=== PATIENT | male | born 1990 | race Caucasian/White ===

== ENCOUNTER 2023-03-28 14:00 | Emergency (ER) | payer MEDICAID, SELFPAY ==
--- NOTE | ~2023-03-28 | US_ITS ---
EXAMINATION: US venous doppler [facility] DATE: 03/28/2023 14:55 INDICATION: Lower limb swelling TECHNIQUE: Grayscale ultrasound images without and with compression and Doppler ultrasound images of the bilateral lower extremity veins were obtained. COMPARISON: None. FINDINGS: The visualized portions of right common femoral vein, profunda (deep) femoral vein, proximal femoral vein, popliteal vein, gastrocnemius vein and greater saphenous vein outflow are patent. The mid to di stal femoral vein and the posterior tibial and peroneal veins are unable to be assessed due to poor v isualization related to body habitus. The visualized portions of left common femoral vein, profunda femoral vein, proximal femoral vein, po pliteal vein, gastrocnemius vein and greater saphenous vein outflow are patent. The mid to distal fem oral vein and the posterior tibial and peroneal veins are unable to be assessed due to poor visualiza tion related to body habitus IMPRESSION: 1. Limited bilateral lower extremity Doppler study demonstrating no visible deep venous thrombosis i n either lower limb. Of note the bilateral mid to distal femoral veins, posterior tibial veins and pe roneal veins were unable to be visualized due to patient body habitus. Reviewed, dictated and finalized at location A. IMPRESSION: 1. Limited bilateral lower extremity Doppler study demonstrating no visible de ep venous thrombosis in either lower limb. Of note the bilateral mid to distal femoral veins, posterior tibial veins and peroneal veins were unable to be visu alized due to patient body habitus.
--- NOTE | ~2023-03-28 | CT_ITS ---
EXAMINATION: CTA chest PE abdomen pel DATE: 03/28/2023 15:30 INDICATION: Shortness of breath. Jaundice. TECHNIQUE: Computed tomography angiography (CTA) of the chest was performed with 100 mL Omnipaque-350 intravenous contrast timed to evaluate the pulmonary arteries. Coronal maximum intensity projection 3D-reconstructions were created by the technologist. Computed tomography (CT) of the abdomen and pelv is was performed with intravenous contrast. Automated exposure control and iterative reconstruction t echnique were employed. The dose-length product was 2608.64 mGy-cm. COMPARISON: None. FINDINGS: CTA chest: There are small pleural effusions, right worse than left. There is minimal atelectasis kelsey aterally. There is a multinodular goiter. Cardiomegaly is noted. No pericardial effusion. There is mi ld mediastinal lymphadenopathy. For example, a right paratracheal node measures 1.7 x 1.3 cm. There i s no pulmonary embolus. CT abdomen and pelvis: The liver and spine are normal. There are gallstones in the gallbladder, which is normal in size. The pancreas, adrenal glands, and kidneys are normal. There are no dilated loops of bowel. The prostate is mildly enlarged. There are no dilated loops of bowel. The appendix is not v isualized. There is a small volume of ascites. There is mild bilateral external iliac lymphadenopathy . For example, a right external iliac node measures 19 x 14 mm. There is mild thoracic and lumbar spo ndylosis. There is mild chronic anterior wedging of multiple thoracic vertebral bodies. IMPRESSION: 1. Small pleural effusions, right worse than left. 2. Small volume of ascites. 3. Mild mediastinal and bilateral external iliac lymphadenopathy. 4. No pulmonary embolus. 5. Multinodular goiter. Consider thyroid ultrasound for risk stratification. Reviewed, dictated and finalized at location E.
--- NOTE | ~2023-03-28 | XR_ITS ---
XR chest 2V DATE: 03/28/2023 14:36 INDICATION: Shortness of breath, bilateral leg edema TECHNIQUE: 2 views COMPARISON: None FINDINGS: Enlarged cardiac silhouette which may be due to cardiomegaly/cardiomyopathy, less likely pe ricardial effusion. Mild prominence of the fissures suggesting subpleural edema. There is pulmonary vascular redistributi on suggesting pulmonary venous hypertension. Slight pleural effusions are suggested. No pulmonary consolidation or pneumothorax. IMPRESSION: Enlarged cardiac silhouette likely due to cardiomegaly, less likely pericardial effusion Congestive changes Reviewed, dictated and finalized at location L.
[2023-03-28 14:10] VITALS: BP 179/123; PULSE 108; RESP 20; TEMP 36.3; O2SAT 95
[2023-03-28 14:22] LABS: Basophils Absolute Auto 0.03 K/mm3 (0.00-0.10); Basophils Percent Auto 0.4 % (0.0-1.0); Eosinophils Percent Auto 1.5 % (1.0-6.0); Hematocrit 40.9 % (40.0-54.0); Hemoglobin 13.1 g/dL (14.0-18.0); Immature Granulocyte Absolute 0.02 K/mm3 (0.00-0.00); Immature Granulocyte Percent A 0.3 % (0.0-0.0); Lymphocytes Absolute Auto 1.52 K/mm3 (1.10-4.50); Lymphocytes Percent Auto 22.3 % (18.0-42.0); Mean Corpuscular Hemoglobin 27.6 pg (27.0-31.0); Mean Corpuscular Volume 86.1 fL (78.0-102.0); Mean Platelet Volume 9.7 fl (8.7-11.0); Monocytes Percent Auto 7.3 % (2.0-11.0); Neutrophils Absolute Auto 4.7 K/mm3 (1.7-7.2); Neutrophils Percent Auto 68.2 % (50.0-70.0); Platelet Count Result 243 K/mm3 (150-420); Red Blood Count 4.75 M/mm3 (4.70-6.10); Red Cell Distribution Width 15.2 % (11.6-14.4); White Blood Count 6.8 K/mm3 (4.8-10.8)
--- NOTE | 2023-03-28 14:27 | ED.EXTPRO ---
HPI - Extremity Problem General Chief complaint: Extremity Problem,Nontraumatic Stated complaint: leg swelling Time Seen by Provider: 03/28/23 14:13 Source: patient and family Mode of arrival: ambulatory Limitations: no limitations History of Present Illness HPI Narrative: patient is a 32-year-old male with bilateral lower extremity edema getting worse over the past 3-4 months. Patient has been waiting to deal with this problem and decided today that he would make the move and come to the emergency room for evaluation. No new changes in the last 24-48 hours. The swelling has increased over the last month however. He has associated shortness of breath with exertion. patient has not seen any specialist or primary doctor for this problem. 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 MD Complaint: extremity swelling Onset (ago): month(s) (4) Pain Consistency: constant ( Progressively getting worse) Location: left, right and lower extremity Severity scale (1-10): 9 ( swelling) Quality: aching Radiation: none Relieving factors: nothing Exacerbating factors: nothing Associated symptoms: shortness of breath Related Data Allergies Allergy/AdvReac Type Severity Reaction Status Date / Time No Known Allergies Allergy Verified 03/28/23 14:24 Review of Systems Review of Systems: All systems reviewed & are unremarkable except as noted in HPI and below Constitutional: Constitutional: Reports no additional constitutional complaints Eyes: Eyes: Reports no additional eye complaints ENT: Reports system reviewed and no additional complaints, except as documented Cardiovascular: Cardiovascular: Reports no additional cardiovascular complaints Respiratory: Respiratory: Reports no additional respiratory complaints Gastrointestinal: Gastrointestinal: Reports no additional gastrointestinal complaints Genitourinary: Genitourinary: Reports no additional male genitourinary complaints Musculoskeletal: Musculoskeletal: Reports no additional musculoskeletal complaints Integumentary/Breasts: Skin/Breast: Reports system reviewed and no additional complaints, except as docu Neurologic: Reports system reviewed and no additional complaints, except as documented Psychiatric: Psychiatric: Reports no additional psychiatric complaints Endocrine: Endocrine: Reports no additional endocrine complaints Hematologic/Lymphatic: Hematologic/Lymphatic: Reports no additional hematologic/lymphatic complaints Allergic/Immunologic: Allergic/Immunologic: Reports no additional allergic/immunologic complaints Exam Const: General: healthy appearing ( with some paleness appearance of the face and possibly slight jaundice) Nutritional Appearance: well nourished and obese Orientation/consciousness: patient oriented x3 Limitations: no limitations HENMT: Head: normal to inspection Ears: external ears normal Face/Nose/Sinus: Normal external nose present Eyes: Conjunctivae: conjunctivae normal Pupils: Equal, round and reactive pupils present EOM: EOMs intact bilaterally Neck: Neck: normal visual inspection Chest: Chest palpation & inspection: normal inspection of the chest Resp: Effort & Inspection: normal respiratory effort Auscultation: clear to auscultation bilaterally Cardio: Rate: regular rate Rhythm: regular rhythm Heart sounds: no murmurs GI: Inspection: non-distended GI Palp: Yes Soft to palpation and No Tenderness to palpation present (GI) Auscultation: normal bowel sounds : General: Yes bladder normal to palpation Back/Spine/Pelvis: Back: no CVA tenderness Skin: General skin exam: jaundice and pallor Rashes: no rashes Wounds: no wounds Neuro: General: patient oriented x3 Cranial nerves: Yes Nystagmus not present Speech: normal speech Extrem: Other: bilateral lower extremity 4+ pitting edema (extends from the thighs to the feet) Psych: Mental Status: mental status grossly normal Affect: normal
[2023-03-28 14:40] LABS: INR 1.1; Partial Thromboplastin Time 28.5 SEC (23.90-30.70); Prothrombin Time 11.9 Seconds (9.50-12.10)
[2023-03-28 14:42] LABS: Lactic Acid Reflex 1.9 mmol/L (0.4-2.0)
[2023-03-28 14:43] LABS: D Dimer 1.35 mg/L (0.19-0.50)
[2023-03-28 14:45] LABS: Alanine Aminotransferase 10 U/L (16-63); Albumin Level 3.3 g/dL (3.4-5.0); Alkaline Phosphatase 141 U/L (46-116); Anion Gap 11 mmol/L (8-16); Aspartate Amino Transferase 16 U/L (15-37); Bilirubin,Total 2.9 mg/dL (0.00-1.00); Blood Urea Nitrogen 17 mg/dL (7-18); Calcium 9.1 mg/dL (8.5-10.1); Carbon Dioxide 27 mmol/L (21-32); Chloride 106 mmol/L (98-108); Estimated CRCL calculation 117 ml/min; Estimated Glomerular Filt Rate 58; Glucose 96 mg/dL (70-99); Osmolality Calculated 299 mOsm/kg (285-295); Potassium 3.9 mmol/L (3.5-5.1); Sodium 144 mmol/L (136-145); Thyroid Stimulating Hormone 2.03 uIU/mL (0.36-3.74); Total Protein 6.7 g/dL (6.4-8.2)
[2023-03-28 15:06] VITALS: BP 167/106; PULSE 95; RESP 24; O2SAT 96
[2023-03-28 16:08] VITALS: BP 158/109; PULSE 106; RESP 20; O2SAT 99
[2023-03-28 16:27] LABS: Appearance Urine Clear (Clear); Bilirubin Urine Negative (Negative); Blood Urine 2+ (Negative); Color Urine Yellow (Yellow); Glucose Urine UA Negative (Negative); Ketones Urine Negative (Negative); Leukocyte Esterase Ur Negative LEU/UL (Negative); Nitrate Urine Negative (Negative); Protein Urine 2+ (Negative)
[2023-03-28 16:33] LABS: Add Urine Microscopic? YES; Bacteria Urine Trace /hpf; Squamous Epithelial Cell Urine Rare /hpf (Few); WBC Urine 0-3 /hpf (0-3)
[2023-03-28] MEDS: hydrALAZINE HCL 25 MG TABLET PO (17:34)
[2023-03-28 17:39] VITALS: BP 182/122; PULSE 109; RESP 20; TEMP 36.5; O2SAT 98
== END 2023-03-28 17:46 | disposition home or self-care (01) ==
PROVIDERS: Emergency Provider Emergency Medicine
DX: N04.9 Nephrotic syndrome with unspecified morphologic changes (principal); R60.9 Edema, unspecified; R59.1 Generalized enlarged lymph nodes; I10 Essential (primary) hypertension; Z85.6 Personal history of leukemia; Z92.21 Personal history of antineoplastic chemotherapy; Z92.3 Personal history of irradiation
CPT/HCPCS: 36415; 71046; 71275; 74177; 80053; 81001; 83605; 84443; 85025; 85380; 85610; 85730; 93970; 99284; A9270; Q9967

== ENCOUNTER 2023-04-20 08:48 | Outpatient (CLI) | payer MEDICAID, SELFPAY ==
--- NOTE | ~2023-04-20 | US_ITS ---
EXAMINATION: US thyroid DATE: 04/20/2023 09:19 INDICATION: Multinodular goiter. TECHNIQUE: Multiple ultrasound images of the thyroid were obtained. COMPARISON: Chest CT 03/28/2023 FINDINGS: The right thyroid lobe measures 7.7 x 4.1 cm. The left thyroid lobe measures 11.3 x 7.4 x 5.0 cm. Th e thyroid is diffusely replaced by nodules. In the right thyroid lobe, there is a 2.5 cm solid, hypoe choic, wider than tall nodule with irregular margin and punctate echogenic foci (TI-RADS TR5). In the right thyroid lobe, there is a 5.2 cm cystic hypoechoic nodule with mobile echoes and smooth margin without echogenic foci (TR2). In the left thyroid lobe, there is a 7.4 cm solid, hypoechoic, wider th an tall nodule with smooth margin and macrocalcifications (TR4). IMPRESSION: 1. Multinodular goiter. Consider ultrasound-guided fine-needle aspiration of 2 nodules. Reviewed, dictated and finalized at location E.
== END 2023-04-20 08:49 | disposition home or self-care (01) ==
PROVIDERS: PCP Nurse Practitioner; Visit Provider Nurse Practitioner
DX: E04.2 Nontoxic multinodular goiter (principal)
CPT/HCPCS: 76536

== ENCOUNTER 2023-05-15 10:35 | Outpatient (CLI) | payer OTHER, SELFPAY ==
--- NOTE | 2023-05-15 10:42 | ECHO_ITS ---
Patient Info Name: Erlin Hernandez Age: 32 years : 1990 Gender: Male Ht: 63 in Wt: 360 lbs BSA: 2.81 m2 HR: 65 bpm BP: 143 / 95 mmHg Heart Rhythm: Sinus Rhythm Technical Quality: Good Exam Date: 05/15/2023 1:35 PM Exam Location: Echo Lab Patient Status: Outpatient Admit Date: 05/15/2023 Staff Ordering Physician: Rhett Deng MD Drug Regulatory Affairs Specialist: Sari Walker RDCS Attending Provider: Rhett Deng MD Referring Physician: Sowmya VELOZ; Exam Type: CA echo doppler color flow Study Info Indications - LEUKEMIA, LEG SWELLING Complete two-dimensional, color flow and Doppler transthoracic echocardiogram is performed. Summary 1. Complete two-dimensional, color flow and Doppler transthoracic echocardiogram is performed. 2. Left ventricular chamber dimension is severely enlarged. 3. Left ventricular systolic function is severely globally reduced, estimated at 25-30%. 4. There is mild concentric increased left ventricular wall thickness. 5. The left ventricular diastolic function is abnormal. 6. E/e' 18 is elevated. 7. Left atrial chamber dimension is moderately enlarged. 8. Right atrial chamber dimension is moderately enlarged. 9. There is mild mitral valve regurgitation. 10. There is mild tricuspid valve regurgitation. 11. No pulmonary hypertension, estimated pulmonary arterial systolic pressure is 37 mmHg. Left Ventricle E/e' 18 is elevated. Left ventricular chamber dimension is severely enlarged. Left ventricular systolic function is severely globally reduced, estimated at 25-30%. There is mild concentric increased left ventricular wall thickness. The left ventricular diastolic function is abnormal. Right Ventricle Right ventricular chamber dimension is normal. Right ventricular systolic function is normal and with normal TAPSE 2.0 cm. Left Atria Left atrial chamber dimension is moderately enlarged. Right Atria Right atrial chamber dimension is moderately enlarged. Aortic Valve The aortic valve is trileaflet. There is no aortic valve stenosis. There is no aortic valve regurgitation. Pulmonic Valve There is no pulmonic regurgitation. Mitral Valve There is no mitral valve stenosis. There is mild mitral valve regurgitation. Tricuspid Valve There is mild tricuspid valve regurgitation. No pulmonary hypertension, estimated pulmonary arterial systolic pressure is 37 mmHg. Pericardium/Pleural There is no pericardial effusion. Inferior Vena Cava Normal inferior vena cava with >50% collapse upon inspiration consistent with normal right atrial pressure, 5 mmHg. Aorta The aortic root size at the sinus of Valsalva is normal. Left Ventricular Outflow Tract Name Value Normal LVOT 2D LVOT Diameter 2.2 cm LVOT Doppler LVOT Peak Velocity 88 cm/s LVOT Peak Gradient 3 mmHg LVOT Mean Gradient 2 mmHg LVOT VTI 25 cm LVOT VTI/AV VTI Ratio 0.9 LVOT Stroke Volume 97 ml Pulmonic Valve Name Value
== END 2023-05-15 10:36 | disposition home or self-care (01) ==
LOC: CHSIMG 10:37
PROVIDERS: PCP Nurse Practitioner; Visit Provider Internal Medicine
DX: R60.0 Localized edema (principal); Z85.6 Personal history of leukemia; I08.1 Rheumatic disorders of both mitral and tricuspid valves
CPT/HCPCS: 93306

== ENCOUNTER 2023-05-29 07:09 | Outpatient (CLI) | payer OTHER, SELFPAY ==
--- NOTE | ~2023-05-29 | US_ITS ---
US renal BI 05/29/2023 08:27 Procedure: Realtime transabdominal ultrasound of the kidneys and bladder. Indication: Hypertension Comparison: No prior studies for comparison. Findings: Renal echotexture is normal bilaterally without hydronephrosis, contour deforming mass or r enal calculus. The right kidney measures 10.7 cm and left kidney measures 12.7 cm. Bladder wall is m ildly thickened measuring 8 mm. Impression: 1: Mild bladder wall thickening. Consider cystitis in the appropriate clinical setting. Reviewed, dictated and finalized at location B. ER DEVELOPMENT COORDINATOR Impression: 1: Mild bladder wall thickening. Consider cystitis in the appropriate clinical setting.
--- NOTE | ~2023-05-29 | CT_ITS ---
Clinical Indication: Swelling, lymphoblastic leukemia CT Scan of the Neck, Chest, Abdomen, and Pelvis with Contrast: Technique: Contiguous sections were acquired throughout the neck, chest, abdomen, and pelvis after in travenous administration of 100 cc of Omnipaque 350. Dose reduction technique was used on this scan by utilizing automated exposure control and iterative reconstruction technique. The dose-length produ ct (DLP) was 2355.55 mGy-cm. COMPARISON: 03/28/2023 Findings: No definite lymphadenopathy seen in the neck. There is prominence of bilateral palatine ton sils, suggestive of airway narrowing at the lower oropharynx. No peritonsillar abscess identified. Pa rapharyngeal fat is preserved. Parotid and submandibular glands are unremarkable. There is a markedly enlarged thyroid gland, with substernal extension. Suggestion of extensive nodula rity. There is a 4.8 cm cystic/hypodense area in the right thyroid lobe. There is minimal narrowing o f the trachea in the lateral dimension at the level of the thyroid gland, trachea measuring 10 mm at this level (axial image 73). There is no evidence of any significant mediastinal, hilar or axillary lymphadenopathy. Small amount of pericardial fluid. The mediastinal soft tissues and vascular structures otherwise appear normal. There is no evidence of pleural or pericardial effusion. The lungs are clear. No pulmonary nodules or infiltrates are noted. The liver, spleen, pancreas, adrenals and kidneys are within normal limits. Numerous gallstones are p resent. No evidence of aortic aneurysm. No lymphadenopathy. No bowel obstruction or bowel wall thickening. There is no evidence to suggest acute appendicitis. Urinary bladder is unremarkable. No pelvic mass evident. No ascites. Impression: Prominent bilateral palatine tonsils with possible element of airway narrowing at the lower oropharyn x. No peritonsillar abscess or other inflammatory change clearly evident. Correlate clinically, espec ially for upper respiratory symptoms/dyspnea. Consider direct inspection as indicated. Markedly enlarged thyroid gland/goiter, as detailed above, similar in appearance to prior exam. Consi clemencia additional thyroid workup/evaluation as indicated. Cholelithiasis. A small amount of pericardial fluid. Reviewed, dictated and finalized at location M. OR PODIATRIC MEDICINE Impression: Prominent bilateral palatine tonsils with possible element of airway narrowing at the lower oropharynx. No peritonsillar abscess or other inflammatory change clearly evident. Correlate clinically, especially for upper respiratory symptom s/dyspnea. Consider direct inspection as indicated. Markedly enlarged thyroid gland/goiter, as detailed above, similar in appearanc e to prior exam. Consider additional thyroid workup/evaluation as indicated. Cholelithiasis. A small amount of pericardial fluid.
[2023-05-29 07:42] LABS: Creatinine Urine 78.38 mg/dL (40-278); Total Protein Urine Random 24.7 mg/dL (0.0-11.9); Ur Ttl Prot Creatinine Ratio 0.32 mg/mg (0-0.20)
[2023-05-29 07:43] LABS: Estimated Glomerular Filt Rate > 60
[2023-05-29 07:45] LABS: Anion Gap 6 mmol/L (8-16); Blood Urea Nitrogen 18 mg/dL (7-18); Carbon Dioxide 32 mmol/L (21-32); Chloride 99 mmol/L (98-108); Glucose 102 mg/dL (70-99); Osmolality Calculated 285 mOsm/kg (285-295); Phosphorus 4.3 mg/dL (2.6-4.7); Sodium 137 mmol/L (136-145)
[2023-06-01 10:44] LABS: Complement C3 141 mg/dL (82-185)
[2023-06-01 11:11] LABS: Anti Glomerular Basement Memb <1.0 AI (<1.0)
[2023-06-01 16:18] LABS: Albumin 4.1 g/dL (3.8-4.8); Alpha 1 Globulin 0.3 g/dL (0.2-0.3); Alpha 2 Globulin 0.7 g/dL (0.5-0.9); Beta 1 Globulin 0.5 g/dL (0.4-0.6); Gamma Globulin 1.3 g/dL (0.8-1.7); Protein, Total 7.4 g/dL (6.1-8.1)
[2023-06-03 01:34] LABS: Creatinine, Random Urine 80 mg/dL (20-320); Total Protein/Creatinine Ratio 238 mg/g creat (25-148)
[2023-06-03 21:25] LABS: ANCA Screen Negative (Negative)
== END 2023-05-29 07:10 | disposition home or self-care (01) ==
LOC: CHSIMG 07:11
PROVIDERS: PCP Nurse Practitioner; Visit Provider Internal Medicine Nephrology
DX: I10 Essential (primary) hypertension (principal); R60.0 Localized edema; Z85.6 Personal history of leukemia; E04.9 Nontoxic goiter, unspecified; K80.20 Calculus of gallbladder without cholecystitis without obstruction; R93.41 Abnormal radiologic findings on diagnostic imaging of renal pelvis, ureter, or bladder
CPT/HCPCS: 36415; 70491; 71260; 74177; 76775; 80069; 82570; 83520; 84155; 84156; 84165; 84166; 86036; 86038; 86160; 86225; Q9967

== ENCOUNTER 2023-08-09 20:03 | Outpatient (CLI) | payer OTHER, SELFPAY ==
--- NOTE | 2023-09-04 10:32 | WPDSLEEPSTUD ---
Sleep Study Date of Study: 08/09/23 Ordering Provider: Parrish Hutson APRN Interpreting Physician: Josephine Mckeon MD Sleep Study Type: Split Polysomnogram Height: 1.91 m Weight: 148.778 kg Body Mass Index: 41.0 Neck Circumference (inches): 18.75 [place]: 3 Reason for Sleep Study Loud snoring Sleep History Erlin Hernandez is a 32-year-old man with history of hypertension, cardiomyopathy, stage 3 chronic kidney disease with a history of leukemia. He has a goiter and is being evaluated for possible thyroidectomy. His mother reports that he has had apneic episodes. He rarely awakens from sleep feeling short of breath. He never wakes at night with heartburn, belching or coughing.??He frequently snores, and frequently snores loudly enough that others complain. He frequently has trouble sleeping when he has a cold. He never wakes up gasping for breath during the night. He occasionally has breathing problems at night. He rarely sweats excessively at night. He rarely notices his heart pounding or beating irregularly during the night. He occasionally falls asleep during the day. He rarely falls asleep involuntarily, however never falls asleep while driving. He never experiences loss of muscle tone with strong emotion. He never has daytime difficulty at work due to excessive sleepiness. He rarely feels paralyzed on waking or falling asleep. He never experiences vivid dreams upon waking or falling asleep. He never feels afraid of going to sleep. He occasionally has nightmares. He rarely recalls his dreams. He occasionally has thoughts racing through his mind. He occasionally feels sad or depressed. He occasionally feels anxiety. He never notices parts of his body jerk. He never kicks during the night. He rarely feels crawling or aching feelings in his legs. He occasionally feels leg pain at night. He never has morning jaw pain, rarely grinds his teeth at night. He rarely feels bothered by pain during the day, rarely awakened by pain during the night. He rarely wakes up feeling stiff in the morning, and he rarely wakes feeling sore or achy. He rarely awakens with pain in his neck, spine, or joints. Normal bedtime is 11:00 p.m., falling asleep within 10-15 minutes, waking once or twice during the night for 15 minutes, long enough to get a drink of water in go to the bathroom. His normal wake time is 8:00 a.m.. He keeps the same schedule on weekends. He estimates getting between 6 and 7 hours of sleep at night. He takes naps in the day, and he may feel refreshed after 10-15 minute nap. Habits:??Tobacco: Never smoker Caffeine: 3-4 cans Mountain Dew daily Alcohol: 2-3 servings per month Recreational substances: none [facility] Past Medical History Medical History Ascites Bilateral lower extremity edema Elevated LFTs Hypertension Surgical History Surgical History History of removal of Port-a-Cath Family History Family History Father Glioblastoma Sibling Thyroid cancer Mother Thyroid nodule Social History Social History Smoking status: Never smoker Alcohol intake: current Substance use: never Do You Feel Safe in your Home?: Yes Lack of Transportation: No Lack of Food: Never True Current Housing: I Have Housing Concerned About Future Housing: No Difficulty Paying Gas/Electric Bills: Decline to Answer Difficulty Paying for Meds: Decline to Answer Currently Unemployed: Decline to Answer Education: High School Diploma/GED Difficulty w/ Childcare or Family Care: No Living arrangements: with family Gender identity (if verbalized by the patient): Male Medications Home Medications Medication Instructions Recorded Confirmed Type furosemide 20 mg tablet (Lasix) 20
[2023-09-04 10:47] VITALS: BMI 41.0
== END 2023-08-10 06:33 | disposition home or self-care (01) ==
LOC: CHSCSM 20:05
PROVIDERS: PCP Nurse Practitioner Family; Visit Provider Nurse Practitioner Family
DX: G47.33 Obstructive sleep apnea (adult) (pediatric) (principal); R06.83 Snoring; Z68.41 Body mass index [BMI] 40.0-44.9, adult
CPT/HCPCS: 95811

== ENCOUNTER 2023-08-21 08:04 | Outpatient (CLI) | payer OTHER, SELFPAY ==
--- NOTE | 2023-08-21 08:08 | ECHO_ITS ---
Patient Info Name: Erlin Hernandez Age: 32 years : 1990 Gender: Male Ht: 63 in Wt: 328 lbs BSA: 2.67 m2 HR: 78 bpm BP: 151 / 89 mmHg Heart Rhythm: Sinus Rhythm Technical Quality: Good Exam Date: 08/21/2023 9:36 AM Exam Location: Echo Lab Patient Status: Outpatient Admit Date: 08/21/2023 Staff Ordering Physician: Giovanni Clay DO Adult Health Clinical Nurse Specialist: Sari Walker RDCS Attending Provider: Amol Baltazar DO Referring Physician: Obed VÁSQUEZ; Exam Type: CA echo doppler color flow Study Info Indications - cardiomyopathy, unsp Complete two-dimensional, color flow and Doppler transthoracic echocardiogram is performed. Summary 1. Complete two-dimensional, color flow and Doppler transthoracic echocardiogram is performed. 2. Left ventricular chamber dimension is normal. 3. Left ventricular systolic function is normal, estimated at 60-65%. 4. There is mild concentric increased left ventricular wall thickness. 5. The left ventricular diastolic function is grade I diastolic dysfunction. 6. E/e' 23 is elevated. 7. Left atrial chamber dimension is mildly enlarged. 8. There is trace tricuspid valve regurgitation. 9. No pulmonary hypertension, estimated pulmonary arterial systolic pressure is 14 mmHg. Left Ventricle E/e' 23 is elevated. Left ventricular chamber dimension is normal. Left ventricular systolic function is normal, estimated at 60-65%. There is mild concentric increased left ventricular wall thickness. The left ventricular diastolic function is grade I diastolic dysfunction. Right Ventricle Right ventricular systolic function is normal and with normal TAPSE 3.9 cm. Right ventricular chamber dimension is normal. Left Atria Left atrial chamber dimension is mildly enlarged. Right Atria Right atrial chamber dimension is normal. Aortic Valve The aortic valve is trileaflet. There is no aortic valve stenosis. There is no aortic valve regurgitation. Pulmonic Valve There is no pulmonic regurgitation. Mitral Valve There is no mitral valve stenosis. There is no mitral valve regurgitation. Tricuspid Valve There is trace tricuspid valve regurgitation. No pulmonary hypertension, estimated pulmonary arterial systolic pressure is 14 mmHg. Pericardium/Pleural There is no pericardial effusion. Inferior Vena Cava Normal inferior vena cava with >50% collapse upon inspiration consistent with normal right atrial pressure, 5 mmHg. Aorta The aortic root size at the sinus of Valsalva is normal. Left Ventricular Outflow Tract Name Value Normal LVOT 2D LVOT Diameter 2.1 cm LVOT Doppler LVOT Peak Velocity 153 cm/s LVOT Peak Gradient 9 mmHg LVOT Mean Gradient 5 mmHg LVOT VTI 35 cm LVOT VTI/AV VTI Ratio 0.9 LVOT Stroke Volume 126 ml Pulmonic Valve Name Value Normal RVOT Doppler
[2023-08-21 10:42] LABS: Free T4 Free Thyroxine 0.96 ng/dL (0.76-1.46); Thyroid Stimulating Hormone 0.68 uIU/mL (0.36-3.74)
[2023-08-21 10:57] LABS: Cholesterol 149 mg/dL (0-200); HDL Direct 43 mg/dL (40-60); LDL Cholesterol Calculated 92 mg/dL (<130); Triglycerides 69 mg/dL (0-150)
[2023-08-24 01:50] LABS: Thyroid Peroxidase Antibodies <1 IU/mL (<9)
== END 2023-08-21 08:05 | disposition home or self-care (01) ==
LOC: CHSIMG 08:04
PROVIDERS: Internal Medicine; Internal Medicine Cardiovascular Disease; PCP Family Medicine; Visit Provider Family Medicine
DX: E04.2 Nontoxic multinodular goiter (principal); I42.9 Cardiomyopathy, unspecified
CPT/HCPCS: 36415; 80061; 84439; 84443; 86376; 93306

== ENCOUNTER 2023-11-06 07:49 | Outpatient (CLI) | payer OTHER, SELFPAY ==
[2023-11-06 09:10] LABS: Alanine Aminotransferase 23 U/L (16-63); Albumin Level 3.7 g/dL (3.4-5.0); Alkaline Phosphatase 88 U/L (46-116); Anion Gap 4 mmol/L (4-12); Aspartate Amino Transferase 19 U/L (15-37); Bilirubin,Total 0.7 mg/dL (0.00-1.00); Blood Urea Nitrogen 25 mg/dL (7-18); Carbon Dioxide 35 mmol/L (21-32); Chloride 97 mmol/L (98-108); Estimated Glomerular Filt Rate 49; Free T4 Free Thyroxine 0.86 ng/dL (0.76-1.46); Glucose 93 mg/dL (70-99); Osmolality Calculated 286 mOsm/kg (285-295); Potassium 4.3 mmol/L (3.5-5.1); Sodium 136 mmol/L (136-145); Thyroid Stimulating Hormone 12.76 uIU/mL (0.36-3.74); Total Protein 7.7 g/dL (6.4-8.2)
[2023-11-09 03:38] LABS: Vitamin D 25 Hydroxy 17 ng/mL (30-100)
[2023-11-09 07:18] LABS: Thyroglobulin 95.3 ng/mL; Thyroglobulin Antibodies <1 IU/mL (< or = 1)
== END 2023-11-06 07:50 | disposition home or self-care (01) ==
LOC: CHSLAB 07:50
PROVIDERS: PCP Nurse Practitioner Family; Visit Provider Internal Medicine
DX: C73 Malignant neoplasm of thyroid gland (principal); E04.2 Nontoxic multinodular goiter
CPT/HCPCS: 36415; 80053; 82306; 82330; 84432; 84439; 84443; 86800

== ENCOUNTER 2023-12-01 07:40 | Outpatient (CLI) | payer OTHER, SELFPAY ==
[2023-12-01 08:12] LABS: Basophils Absolute Auto 0.03 K/mm3 (0.00-0.10); Basophils Percent Auto 0.4 % (0.0-1.0); Eosinophils Absolute Auto 0.12 K/mm3 (0.02-0.50); Eosinophils Percent Auto 1.8 % (1.0-6.0); Hematocrit 35.9 % (40.0-54.0); Hemoglobin 12.5 g/dL (14.0-18.0); Immature Granulocyte Absolute 0.01 K/mm3 (0.00-0.00); Immature Granulocyte Percent A 0.1 % (0.0-0.0); Lymphocytes Absolute Auto 2.43 K/mm3 (1.10-4.50); Lymphocytes Percent Auto 35.7 % (18.0-42.0); Mean Corpuscular HGB Conc 34.8 g/dL (32-36); Mean Corpuscular Hemoglobin 30.9 pg (27.0-31.0); Mean Corpuscular Volume 88.6 fL (78.0-102.0); Mean Platelet Volume 9.2 fl (8.7-11.0); Monocytes Absolute Auto 0.39 K/mm3 (0.10-0.90); Monocytes Percent Auto 5.7 % (2.0-11.0); Neutrophils Absolute Auto 3.83 K/mm3 (1.70-7.20); Neutrophils Percent Auto 56.3 % (50.0-70.0); Platelet Count Result 201 K/mm3 (150-420); Red Blood Count 4.05 M/mm3 (4.70-6.10); Red Cell Distribution Width 11.9 % (11.6-14.4); White Blood Count 6.8 K/mm3 (4.8-10.8)
[2023-12-01 08:37] LABS: Albumin Level 3.5 g/dL (3.4-5.0); Anion Gap 8 mmol/L (4-12); Blood Urea Nitrogen 20 mg/dL (7-18); Calcium 8.5 mg/dL (8.5-10.1); Carbon Dioxide 31 mmol/L (21-32); Chloride 103 mmol/L (98-108); Estimated Glomerular Filt Rate > 60; Glucose 101 mg/dL (70-99); Osmolality Calculated 296 mOsm/kg (285-295); Phosphorus 4.3 mg/dL (2.6-4.7); Potassium 4.8 mmol/L (3.5-5.1); Sodium 142 mmol/L (136-145)
[2023-12-01 08:51] LABS: Free T3 1.67 pg/mL (2.18-3.98); Free T4 Free Thyroxine 0.68 ng/dL (0.76-1.46)
[2023-12-04 11:04] LABS: Thyroglobulin 6.3 ng/mL; Thyroglobulin Antibodies <1 IU/mL (< or = 1)
== END 2023-12-01 07:41 | disposition home or self-care (01) ==
LOC: CHSLAB 07:41
PROVIDERS: PCP Nurse Practitioner Family; Visit Provider Internal Medicine Nephrology
DX: C73 Malignant neoplasm of thyroid gland (principal)
CPT/HCPCS: 36415; 80069; 84432; 84439; 84443; 84481; 85025; 86800

== ENCOUNTER 2023-12-12 07:41 | Outpatient (CLI) | payer OTHER, SELFPAY ==
[2023-12-12 08:13] LABS: Basophils Absolute Auto 0.04 K/mm3 (0.00-0.10); Basophils Percent Auto 0.5 % (0.0-1.0); Eosinophils Absolute Auto 0.15 K/mm3 (0.02-0.50); Hematocrit 37.2 % (40.0-54.0); Hemoglobin 13.2 g/dL (14.0-18.0); Immature Granulocyte Absolute 0.02 K/mm3 (0.00-0.00); Immature Granulocyte Percent A 0.3 % (0.0-0.0); Lymphocytes Absolute Auto 2.59 K/mm3 (1.10-4.50); Lymphocytes Percent Auto 34.4 % (18.0-42.0); Mean Corpuscular HGB Conc 35.5 g/dL (32-36); Mean Corpuscular Hemoglobin 31.1 pg (27.0-31.0); Mean Corpuscular Volume 87.7 fL (78.0-102.0); Mean Platelet Volume 9.3 fl (8.7-11.0); Monocytes Absolute Auto 0.41 K/mm3 (0.10-0.90); Monocytes Percent Auto 5.4 % (2.0-11.0); Neutrophils Absolute Auto 4.32 K/mm3 (1.70-7.20); Neutrophils Percent Auto 57.4 % (50.0-70.0); Platelet Count Result 194 K/mm3 (150-420); Red Blood Count 4.24 M/mm3 (4.70-6.10); Red Cell Distribution Width 12.1 % (11.6-14.4); White Blood Count 7.5 K/mm3 (4.8-10.8)
[2023-12-12 08:56] LABS: Alanine Aminotransferase 25 U/L (16-63); Albumin Level 3.5 g/dL (3.4-5.0); Alkaline Phosphatase 92 U/L (46-116); Anion Gap 7 mmol/L (4-12); Aspartate Amino Transferase 17 U/L (15-37); Bilirubin,Total 0.5 mg/dL (0.00-1.00); Blood Urea Nitrogen 19 mg/dL (7-18); Calcium 8.8 mg/dL (8.5-10.1); Carbon Dioxide 30 mmol/L (21-32); Chloride 101 mmol/L (98-108); Estimated Glomerular Filt Rate 58; Glucose 98 mg/dL (70-99); Osmolality Calculated 288 mOsm/kg (285-295); Potassium 4.1 mmol/L (3.5-5.1); Sodium 138 mmol/L (136-145); Total Protein 7.1 g/dL (6.4-8.2)
[2023-12-14 07:14] LABS: Thyroglobulin 3.2 ng/mL; Thyroglobulin Antibodies <1 IU/mL (< or = 1)
== END 2023-12-12 07:42 | disposition home or self-care (01) ==
LOC: CHSLAB 07:44
PROVIDERS: PCP Nurse Practitioner Family
DX: C73 Malignant neoplasm of thyroid gland (principal); R94.4 Abnormal results of kidney function studies
CPT/HCPCS: 36415; 80053; 84432; 84443; 85025; 86800

== ENCOUNTER 2024-02-01 07:51 | Outpatient (CLI) | payer OTHER, SELFPAY ==
[2024-02-01 09:00] LABS: Free T3 2.61 pg/mL (2.18-3.98); Free T4 Free Thyroxine 1.49 ng/dL (0.76-1.46); Thyroid Stimulating Hormone 0.28 uIU/mL (0.36-3.74)
[2024-02-05 09:58] LABS: Thyroglobulin 2.8 ng/mL; Thyroglobulin Antibodies 1 IU/mL (< or = 1)
== END 2024-02-01 07:52 | disposition home or self-care (01) ==
PROVIDERS: PCP Nurse Practitioner Family; Visit Provider Internal Medicine
DX: C73 Malignant neoplasm of thyroid gland (principal); E89.0 Postprocedural hypothyroidism
CPT/HCPCS: 36415; 84432; 84439; 84443; 84481; 86800

== ENCOUNTER 2024-06-18 12:54 | Outpatient (CLI) | payer OTHER, SELFPAY ==
[2024-06-18 13:52] LABS: Free T4 Free Thyroxine 1.56 ng/dL (0.76-1.46); Thyroid Stimulating Hormone 0.02 uIU/mL (0.36-3.74)
[2024-06-20 13:53] LABS: Thyroglobulin 0.1 ng/mL; Thyroglobulin Antibodies <1 IU/mL (< or = 1)
== END 2024-06-18 12:55 | disposition home or self-care (01) ==
PROVIDERS: PCP Internal Medicine; Visit Provider Internal Medicine
DX: C73 Malignant neoplasm of thyroid gland (principal); E89.0 Postprocedural hypothyroidism
CPT/HCPCS: 36415; 84432; 84439; 84443; 86800

== ENCOUNTER 2024-06-28 09:17 | Outpatient (CLI) | payer OTHER, SELFPAY ==
[2024-06-28 09:46] LABS: Creatinine Urine 17.28 mg/dL (40-278)
[2024-06-28 09:57] LABS: Total Protein Urine Random < 7.0 mg/dL (0.0-11.9); Ur Ttl Prot Creatinine Ratio 0.41 mg/mg (0-0.20)
[2024-06-28 10:43] LABS: Albumin Level 3.7 g/dL (3.4-5.0); Anion Gap 10 mmol/L (4-12); Blood Urea Nitrogen 16 mg/dL (7-18); Calcium 8.5 mg/dL (8.5-10.1); Carbon Dioxide 26 mmol/L (21-32); Chloride 103 mmol/L (98-108); Estimated Glomerular Filt Rate > 60; Glucose 110 mg/dL (70-99); Osmolality Calculated 290 mOsm/kg (285-295); Phosphorus 3.4 mg/dL (2.6-4.7); Potassium 4.3 mmol/L (3.5-5.1); Sodium 139 mmol/L (136-145)
== END 2024-06-28 09:18 | disposition home or self-care (01) ==
PROVIDERS: PCP Internal Medicine; Visit Provider Internal Medicine Nephrology
DX: N18.31 Chronic kidney disease, stage 3a (principal)
CPT/HCPCS: 36415; 80069; 82570; 84156

== ENCOUNTER 2024-10-21 07:02 | Outpatient (CLI) | payer OTHER, SELFPAY ==
--- OUTSIDE RECORDS SUMMARY | 2024-10-21 07:06 | XMS_ITS | Clinical Summary ---
Author Organization [facility] [employer] Address [address] [place] [address] Care Team Providers Care Channel Man Name Role Phone Denitachrystal Niru Primary Care Provider [phone] Source Comments [facility] [employer],non-owned Affiliates and Associated Physician Practices is amultiple site organization consisting of ambulatory clinics and hospital sitesin [place], [place] and [place]. This disclosure is being madepursuant to the Care Everywhere program and may not contain all information available regarding this patient. Last updated 18.[facility] [employer] Allergies No known active allergies Medications * Be aware that medications may not be up to date on this document. Alwaysverify current medications with the patient. carvedilol (Coreg) 12.5 MG tablet Take 1 (one) tablet by mouth 2 times daily 4 Active furosemide (Lasix) 20 MG tablet Take 1 (one) tablet by mouth once daily 4 Active hydrALAZINE (Apresoline) 25 MG tablet Take 1 (one) tablet by mouth 2 times daily 4 Active losartan (Cozaar) 100 MG tablet Take 1 (one) tablet by mouth once daily 4 Active spironolactone (Aldactone) 25 MG tablet Take 1 (one) tablet by mouth once daily 4 Active oxyCODONE, immediate release, (Roxicodone) 5 MG tabletIndicatio ns:Nontoxic goiter, unspecified TAKE ONE TABLET BY MOUTH EVERY 4 HOURS NEEDED 12 tablet 4 Active ibuprofen (Motrin) 600 MG tablet TAKE ONE TABLET BY MOUTH EVERY 6 HOURS NEEDED 120 tablet 4 Active acetaminophen (Tylenol) 325 MG tablet TAKE 2 TABLETS BY MOUTH EVERY 6 HOURS NEEDED FOR FEVER OR PAIN. MAXIMUM ALLOWABLE ACETAMINOPHEN AMOUNT: 4 GRAMS (4,000MG) PER 24 HOURS. 240 tablet 4 Active polyethylene glycol 3350 (Miralax) 17 GM/SCOOP powder MIX AND TAKE 1 CAPFUL (17 GM) BY MOUTH ONCE DAILY WHILE ALSO TAKING OXYCODONE 238 g 4 Active levothyroxine (Synthroid) 112 MCG tablet TAKE ONE TABLET BY MOUTH ONCE DAILY 30 tablet 4 Active Active Problems Problem Noted Date Diagnosed Date Thyroid cancer 10/11/2023 Goiter 08/04/2023 Social History Tobacco Use Types Packs/Day Years Used Date Smoking Tobacco: Never Smokeless Tobacco: Never Tobacco Cessation:Counseling Given: Not Answered Alcohol Use Standard Drinks/Week Comments Yes 0 (1 standard drink = 0.6 oz pur e alcohol) rarely Sex and Gender Information Value Date Recorded Sex Assigned at Not on file 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 Gender Identity Not on file Sexual Orientation Not on file Last Filed Vital Signs Vital Sign Reading Time Taken Comments Blood Pressure 143/78 10/11/2023 9:56 AM CDT Pulse 56 10/11/2023 9:56 AM CDT Temperature 36.2 C (97.1 F) 10/06/2023 8:17 AM CDT Respiratory Rate 18 10/06/2023 11:34 AM CDT Oxygen Saturation 97% 10/11/2023 9:56 AM CDT Inhaled Oxygen Concentration - - Weight 149.7 kg (330 lb) 10/11/2023 9:56 AM CDT Height 190.5 cm (6' 3 ) 10/11/2023 9:56 AM CDT Body Mass Index 41.25 10/11/2023 9:56 AM CDT Plan of Treatment Health Maintenance Due Date Last Done Comments HIV SCREENING 2005 HEPATITIS C SCREENING 09/21/2008 DTAP/TDAP/TD VACCINES (1 - Tdap) 2009 HEPATITIS B VACCINE (1 of 3 - 19+ 3-dose series) 2009 COVID-19 VACCINE (2023-2 5 season) 2024 DEPRESSION SCREENING 06/26/2024 INFLUENZA VACCINE (Season Ended) 2025 ZOSTER VACCINE (1 of 2) 2040 HIB VACCINE Aged Out No longer eligi ble based on patient's age to complete this topic HPV VACCINE Aged Out No longer eligi ble based on patient's age to complete this topic MENINGOCOCCAL (Group B) VACC INE SHARED DECISION-MAKING Aged Out No longer eligibl e based on patient's age to complete this topic MENINGOCOCCAL GROUPS A/C/Y/W VACCINE Aged Out No longer eligible b ased on patient's age to complete this topic PNEUMOCOCCAL VACCINE Aged Out No long er eligible based on patient's age to complete this topic Insurance [facility] ALT Advance Directives * Full Code (Latest Code Status on File) Date Activated Date Inactivated Comments 10/05/2023 12:33 PM 10/06/2023 3:37 PM Care Teams Channel Man Relationship Specialty Start Date End Date Niru Hines [address] [address] [place] [address] PCP - General 07/03/23
--- OUTSIDE RECORDS SUMMARY | 2024-10-21 07:06 | XMS_ITS | Clinical Summary ---
Author Organization [place] [address] [facility] Address [address] [place] [address] Care Team Providers Care Predatory Animal Trapper Name Role Phone Alonso Rosenberg MD Primary Care Provider [phone] Rhett Deng MD Unavailable [phone] Douglas Beltran MD PhD Unavailable [phone] Mateus Rocha MD Unavailable [phone] Virgilio Reddy MD Unavailable [phone] Allergies No known active allergies Medications carvediloL (COREG) 25 mg tablet 11/24/2023 Active furosemide (LASIX) 20 mg tablet Take 1 tablet (20 mg total) by mouth daily 07/10/2023 Active hydrALAZINE (APRESOLINE) 25 mg tablet Take 1 tablet (25 mg total) by mouth 2 (two) times a day 07/10/2023 Active levothyroxine (SYNTHROID) 150 mcg tablet 11/07/2023 Active losartan (COZAAR) 100 mg tablet Take 1 tablet (100 mg total) by mouth daily 07/21/2023 Active spironolactone (ALDACTONE) 25 mg tablet Take 1 tablet (25 mg total) by mouth daily 06/02/2023 Active Active Problems Problem Noted Date Diagnosed Date History of acute lymphoblastic leukemia (ALL) Nephrotic syndrome 12/15/2023 Overview (12/15/2023): Per chart review Primary hypertension 12/15/2023 Lower extremity edema 12/15/2023 Thyroid cancer 10/11/2023 Cancer Staging:Pathologic stage from 10/05/2023:Stage I(pT3a, pNX, cM0, Age at diagnosis: < 55 years) - Signed by Violetta Harry MD on 11/24/2023 Abdominal lymphadenopathy 04/26/2023 Resolved Problems Problem Noted Date Diagnosed Date Resolved Date CKD (chronic kidney disease) stage 2, GFR 60-89 ml/min 12/15/2023 12/15/2023 Acute systolic congestive heart failure 08/23/2023 12/15/2023 Social History Tobacco Use Types Packs/Day Years Used Date Smoking Tobacco: Never Tobacco Cessation:Counseling Given: Not Answered Personal Safety Answer Date Recorded Getting School Help Needed Not on file 11/09 Sex and Gender Information Value Date Recorded Sex Assigned at Not on file 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 Gender Identity Not on file Sexual Orientation Not on file Obstetrics History Last Filed Vital Signs Vital Sign Reading Time Taken Comments Blood Pressure - - Pulse - - Temperature - - Respiratory Rate - - Oxygen Saturation - - Inhaled Oxygen Concentration - - Weight 151.3 kg (333 lb 9.6 oz) 024 12:49 PM CDT Height - - Body Mass Index - - Plan of Treatment Health Maintenance Due Date Last Done Comments Depression Screening 1990 Hepatitis C Screening 1990 DTaP/Tdap/Td Vaccine (4 - Tdap) 2001 05/01/1992, 08/30/1991, 01/25/1991 Varicella Vaccines (1 of 2 - 13+ 2-dose series) 09/27/2003 Hepatitis B Screening 2008 Regular Well Visit/Exam 18-64 2008 Pneumococcal vaccine <65 (1 of 2 - PCV) 2009 Zoster Vaccine (1 of 2) 2009 Covid-19 Vaccine (3 - Pfizer risk series) 01/09/2021 12/12/2020, 11/21/2020 Influenza Vaccine (Season Ended) 2025 HPV Vaccines Aged Out No longer eligi ble based on patient's age to complete this topic Insurance [facility] Care Teams Predatory Animal Trapper Relationship Specialty Start Date End Date Alonso Rosenberg MD [address] [place] [address] PCP - General Pediatrics 11/10/23 Rhett Deng MD [address] [place] [address] Medical Oncologist/Hematologis t Hematology and Oncology 12/15/23 Douglas Beltran MD PhD [address] [place] [address] Radiation Oncologist Radiation Oncology 12/15/23 Mateus Rocha MD [address] [place] [address] Surgeon Otolaryngology 12/15/23 Virgilio Reddy MD [address] [place] [address] Consulting Physician Endocrinology Diabetes & Metabolism 12/15/23
--- OUTSIDE RECORDS SUMMARY | 2024-10-21 07:06 | XMS_ITS | Referral Summary ---
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 Gender Identity Not on file Sexual Orientation [...] Mass Index - - Plan of Treatment Not on file Insurance [facility] Care Teams Paper Bag Maker Relationship Specialty Start Date End Date Alonso Rosenberg MD [address] [place] [address] PCP - General Pediatrics 11/10/23 Rhett Deng MD [address] [place] [address] Medical Oncologist/Hematologis t Hematology and Oncology 12/15/23 Douglas Beltran MD PhD [address] [place] [address] Radiation Oncologist Radiation Oncology 12/15/23 Mateus Rocha MD [address] [facility] [address] [place] [address] Surgeon Otolaryngology 12/15/23 Virgilio Reddy MD [address] [place] [address] Consulting Physician Endocrinology Diabetes & Metabolism 12/15/23
--- OUTSIDE RECORDS SUMMARY | 2024-10-21 07:06 | XMS_ITS | Clinical Summary ---
Author Organization [facility] Address [address] [place] [address] Phone Care Team Providers Care Axle Turner Name Role Phone Niru Hines APRN, HEAD SWAMPER Primary Care Provi clemencia Rhett Deng MD Unavailable [phone] Allergies No known active allergies Medications hydrALAZINE 25 MG Tablet Take 25 mg by mouth in the morning and at bedtime. Active furosemide (LASIX) 20 MG Tablet Take 20 mg by mouth daily. Active carvedilol (COREG) 3.125 MG Tablet 06/02/2023 Active spironolactone (ALDACTONE) 25 MG Tablet 06/02/2023 Active losartan (COZAAR) 50 MG Tablet 05/09/2023 Active Active Problems Problem Noted Date Diagnosed Date Acute systolic congestive heart failure 08/23/19 24 History of acute lymphoblastic leukemia (ALL) Fluid retention in legs 04/26/2023 Abdominal lymphadenopathy 04/26/2023 Neck swelling 04/26/2023 CKD (chronic kidney disease) stage 2, GFR 60-89 ml/min Family History Medical History Relation Name Comments Cancer Father glioblastoma Hypertension Father Stroke Father Hypertension Mother Thyroid Cancer Sister Relation Name Status Comments Father Alive Mother Alive Sister Alive Social History Tobacco Use Types Packs/Day Years Used Date Smoking Tobacco: Never Passive Smoke Exposure: Never Smokeless Tobacco: Never Tobacco Cessation:Counseling Given: No Alcohol Use Standard Drinks/Week Comments Yes 0 (1 standard drink = 0.6 oz pur e alcohol) occasionally Sex and Gender Information Value Date Recorded Sex Assigned at Not on file Legal Sex Male 11:38 AM CDT Gender Identity Not on file Sexual Orientation Not on file Last Filed Vital Signs Vital Sign Reading Time Taken Comments Blood Pressure 168/97 06/07/2023 11:00 AM OYSTER UNLOADER Pulse 85 06/07/2023 11:00 AM OYSTER UNLOADER Temperature 36.3 C (97.3 F) 06/07/2023 11:00 AM OYSTER UNLOADER Respiratory Rate 16 06/07/2023 11:0 0 AM OYSTER UNLOADER Oxygen Saturation 96% 06/07/2023 11: 00 AM OYSTER UNLOADER Inhaled Oxygen Concentration - - Weight 165.1 kg (363 lb 14.4 oz) 04/26/2023 9:58 AM CDT Height 190.5 cm (6' 3 ) 04/26/2023 9:58 AM CDT Body Mass Index 45.48 04/26/2023 9:58 AM CDT Plan of Treatment Health Maintenance Due Date Last Done Comments Hepatitis C Virus (HCV) Screening 1990 TdaP Immunization 1990 Hepatitis B Immunization (1 of 3 - 19+ 3-dose series) 2009 Influenza Immunization (#1) 2024 SARS-COV-2 Immunization (2023- season) 2024 12/12/2020, 11/21/2020 Respiratory Syncytial Virus (RSV) Immunization (Adult) (1 - 1-dose 75+ series) 2065 DTaP/Tdap/Td Immunization Discontinued 1991, 08/30/1991, 01/25/1991 Meningococcal Immunization (ACWY) Aged Out No longer eligible based on patient's age to complete this topic Pneumococcal Immunization Combined Aged Out No longer eligible based on patient's age to complete this topic Rotavirus Immunization Aged Out No lo nger eligible based on patient's age to complete this topic Insurance MEDICAID [facility] Care Teams Axle Turner Relationship Specialty Start Date End Date Niru Hines APRN, HEAD SWAMPER [address] [address] PCP - General Advanced Practice Nurse 04/26/23 Rhett Deng MD [address] [place] [address] Consulting Physician Medical Oncology 04/26/23
--- OUTSIDE RECORDS SUMMARY | 2024-10-21 07:06 | XMS_ITS ---
Author Organization [place] [address] [facility] Address [address] [place] [address] Care Team Providers Care Unit Tender Name Role Phone Alonso Rosenberg MD Primary Care Provider [phone] Rhett Deng MD Unavailable [phone] Douglas Beltran MD PhD Unavailable [phone] Mateus Rocha MD Unavailable Virgilio Reddy MD Unavailable [phone] Active Problems Problem Noted Date Diagnosed Date History of acute lymphoblastic leukemia (ALL) Nephrotic syndrome 12/15/2023 Overview (12/15/2023): Per chart review Primary hypertension 12/15/2023 Lower extremity edema 12/15/2023 Thyroid cancer 10/11/2023 Cancer Staging:Pathologic stage from 10/05/2023:Stage I(pT3a, pNX, cM0, Age at diagnosis: < 55 years) - Signed by Violetta Harry MD on 11/24/2023 Abdominal lymphadenopathy 04/26/2023 Current Treatment and Therapy Plans No current plan information found. Past Treatment and Therapy Plans No past plan information found. Radiation Treatments * Course C1 Thyroid 202312/15/2023 - 12/15/2023 Treatment Period Energy Fraction Dose Fractions Total Dose Plans Planned Thyroid1 12/15/2023 - 12/15/2023 30 .3 Reference Points Delivered Thyroid1 12/15/2023 - 12/15/2023 30 Resolved Problems Problem Noted Date Diagnosed Date Resolved Date CKD (chronic kidney disease) stage 2, GFR 60-89 ml/min 12/15/2023 12/15/2023 Acute systolic congestive heart failure 08/23/2023 12/15/2023
[2024-10-21 08:01] LABS: Alanine Aminotransferase 29 U/L (16-63); Albumin Level 3.7 g/dL (3.4-5.0); Alkaline Phosphatase 127 U/L (46-116); Anion Gap 6 mmol/L (4-12); Aspartate Amino Transferase 15 U/L (15-37); Bilirubin,Total 0.9 mg/dL (0.00-1.00); Blood Urea Nitrogen 18 mg/dL (7-18); Carbon Dioxide 30 mmol/L (21-32); Chloride 103 mmol/L (98-108); Estimated Glomerular Filt Rate 58; Free T4 Free Thyroxine 1.42 ng/dL (0.76-1.46); Glucose 104 mg/dL (70-99); Osmolality Calculated 289 mOsm/kg (285-295); Potassium 4.1 mmol/L (3.5-5.1); Sodium 139 mmol/L (136-145); Thyroid Stimulating Hormone 0.25 uIU/mL (0.36-3.74); Total Protein 7.3 g/dL (6.4-8.2)
[2024-10-22 20:48] LABS: Vitamin D 25 Hydroxy 83 ng/mL (30-100)
== END 2024-10-21 07:03 | disposition home or self-care (01) ==
PROVIDERS: PCP Internal Medicine; Visit Provider Internal Medicine
DX: C73 Malignant neoplasm of thyroid gland (principal); E89.0 Postprocedural hypothyroidism
CPT/HCPCS: 36415; 80053; 82306; 84432; 84439; 84443; 86800

== ENCOUNTER 2024-11-19 07:11 | Outpatient (CLI) | payer OTHER, SELFPAY ==
--- OUTSIDE RECORDS SUMMARY | 2024-11-19 07:17 | XMS_ITS ---
Author Organization [place] [address] [facility] Address [address] [place] [address] Care Team Providers Care Outpatient Coding Specialist Name Role Phone Alonso Rosenberg MD Primary Care Provider Rhett Deng MD Unavailable [phone] Douglas Beltran MD PhD Unavailable [phone] Mateus Rocha MD Unavailable Virgilio Reddy MD Unavailable [phone] Active Problems Problem Noted Date Diagnosed Date [...]
--- OUTSIDE RECORDS SUMMARY | 2024-11-19 07:17 | XMS_ITS | Clinical Summary ---
Author Organization [place] [address] [facility] Address [address] [place] [address] Care Team Providers Care Form Setter Steel Pan Forms Name Role Phone Alonso Rosenberg MD Primary Care Provider [phone] Rhett Deng MD Unavailable [phone] Douglas Beltran MD PhD Unavailable [phone] Mateus Rocha MD Unavailable [phone] Virgilio Reddy MD Unavailable [phone] Allergies No known active allergies Medications carvediloL [...] Acute systolic congestive heart failure 08/23/2023 12/15/2023 Encounters Date Type Department Care Team Description 11/05/2024 Orders Only [facility] Radiation Oncology [address] [place] [address] Oralia Mancilla PA Malignant neoplasm of thyroid gland (HCC) (Primary Dx) 11/05/2024 Telephone [facility] Radiation Oncology [address] [place] [address] Bozena Pike MA Scheduling Appointments from Last 3 Months Social History Tobacco Use Types Packs/Day Years Used Date Smoking Tobacco: Never Tobacco Cessation:Counseling Given: Not Answered Personal Safety Answer Date Recorded Getting School Help Needed Not on file 11/09 Sex and Gender Information Value Date Recorded Sex Assigned at Not on file 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 Gender Identity Not on file Sexual Orientation [...] patient's age to complete this topic Insurance [facility] Care Teams Form Setter Steel Pan Forms Relationship Specialty Start Date End Date Alonso Rosenberg MD [address] [place] [address] PCP - General Pediatrics 11/10/23 Rhett Deng MD [address] [place] [address] Medical Oncologist/Hematologis t Hematology and Oncology 12/15/23 Douglas Beltran MD PhD [address] [place] [address] Radiation Oncologist Radiation Oncology 12/15/23 Mateus Rocha MD [address] [place] [address] Surgeon Otolaryngology 12/15/23 Virgilio Reddy MD [address] [facility] [address] [place] [address] Consulting Physician Endocrinology Diabetes & Metabolism 12/15/23
--- OUTSIDE RECORDS SUMMARY | 2024-11-19 07:17 | XMS_ITS | Referral Summary ---
Author Organization [place] [address] [facility] Address [address] [place] [address] Care Team Providers Care Law Clerk Name Role Phone Alonso Rosenberg MD Primary Care Provider Rhett Deng MD Unavailable [phone] Douglas Beltran MD PhD Unavailable [phone] Mateus Rocha MD Unavailable [phone] Virgilio Reddy MD Unavailable [phone] Encounters Date Type Department Care Team Description 11/05/2024 Orders Only [facility] Radiation Oncology [address] [id number] Oralia Mancilla PA Malignant neoplasm of thyroid gland (HCC) (Primary Dx) 11/05/2024 Telephone [facility] Radiation Oncology [address] [place] [address] Bozena Pike MA Scheduling Appointments from Last 3 Months Allergies No known active allergies Medications carvediloL [...] on file 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 Gender Identity Not on file Sexual Orientation [...] Plan of Treatment Not on file Insurance [facility] Care Teams Law Clerk Relationship Specialty Start Date End Date Alonso Rosenberg MD [address] [place] [address] PCP - General Pediatrics 11/10/23 Rhett Deng MD [address] [place] [address] Medical Oncologist/Hematologis t Hematology and Oncology 12/15/23 Douglas Beltran MD PhD [address] [place] [address] Radiation Oncologist Radiation Oncology 12/15/23 Mateus Rocha MD [address] [place] [address] Surgeon Otolaryngology 12/15/23 Virgilio Reddy MD [address] [place] [address] Consulting Physician Endocrinology Diabetes & Metabolism 12/15/23
--- OUTSIDE RECORDS SUMMARY | 2024-11-19 07:17 | XMS_ITS | Clinical Summary ---
Author Organization [facility] [employer] Address [address] [facility] [place] [address] Care Team Providers Care Piano Machine Operator Name Role Phone Denitachrystal Niru Primary Care Provider [phone] Source Comments [facility] [employer],non-owned Affiliates and Associated Physician Practices is amultiple site organization consisting of ambulatory clinics and hospital sitesin [place], [place], [place] and [place]. This disclosure is being madepursuant to the Care Everywhere program and may not contain all information available regarding this patient. Last updated 18.[facility] [employer] Allergies No known active allergies Medications * [...] on file Legal Sex Male 5:40 AM WHIPPER Gender Identity Not on file Sexual Orientation [...] 9:56 AM CDT Height 190.5 cm (6' 3) 10/11/2023 9:56 AM CDT Body Mass Index [...] patient's age to complete this topic Insurance [facility] ALT Advance Directives * Full Code (Latest Code Status on File) Date Activated Date Inactivated Comments 10/05/2023 12:33 PM 10/06/2023 3:37 PM Care Teams Piano Machine Operator Relationship Specialty Start Date End Date Niru Hines [address] [address] [place] [address] PCP - General 07/03/23
--- OUTSIDE RECORDS SUMMARY | 2024-11-19 07:17 | XMS_ITS | Clinical Summary ---
Author Organization [facility] Address [address] [place] [address] Phone Care Team Providers Care Matrix Inspector Name Role Phone Niru Hines APRN, MILK BOTTLING MACHINE OPERATOR Primary Care Provi clemencia Rhett Deng MD Unavailable [phone] Allergies No known active allergies Medications hydrALAZINE [...] Comments Blood Pressure 168/97 06/07/2023 11:00 AM AREA SALES MANAGER Pulse 85 06/07/2023 11:00 AM AREA SALES MANAGER Temperature 36.3 C (97.3 F) 06/07/2023 11:00 AM AREA SALES MANAGER Respiratory Rate 16 06/07/2023 11:0 0 AM AREA SALES MANAGER Oxygen Saturation 96% 06/07/2023 11: 00 AM AREA SALES MANAGER Inhaled Oxygen Concentration - - Weight 165.1 kg (363 lb 14.4 oz) 04/26/2023 9:58 AM CDT Height 190.5 cm (6' 3) 04/26/2023 9:58 AM CDT Body Mass Index [...] Insurance MEDICAID [facility] Care Teams Matrix Inspector Relationship Specialty Start Date End Date Nriu Hines APRN, MILK BOTTLING MACHINE OPERATOR [address] [address] PCP - General Advanced Practice Nurse 04/26/23 Rhett Deng MD [address] [place] [address] Consulting Physician Medical Oncology 04/26/23
[2024-11-19 08:54] LABS: Free T3 3.48 pg/mL (2.18-3.98); Free T4 Free Thyroxine 1.76 ng/dL (0.78-2.19)
[2024-11-19 09:08] LABS: Thyroid Stimulating Hormone 0.113 uIU/mL (0.465-4.680)
[2024-11-27 15:14] LABS: Thyroglobulin 0.2 ng/mL; Thyroglobulin Antibodies <1 IU/mL (< or = 1)
== END 2024-11-19 07:12 | disposition home or self-care (01) ==
DX: C73 Malignant neoplasm of thyroid gland (principal)
CPT/HCPCS: 36415; 84432; 84439; 84443; 84481; 86800

== ENCOUNTER 2024-12-02 07:05 | Outpatient (CLI) | payer OTHER, SELFPAY ==
--- OUTSIDE RECORDS SUMMARY | 2024-12-02 07:13 | XMS_ITS | Clinical Summary ---
Author Organization [place] [id number] [facility] Address [address] [place] [address] Care Team Providers Care Occupational Psychologist Name Role Phone Alonso Rosenberg MD Primary Care Provider [phone] Rhett Deng MD Unavailable [phone] Douglas Beltran MD PhD Unavailable [phone] Mateus Rocha MD Unavailable [phone] Virgilio Reddy MD Unavailable [phone] Allergies No known active allergies Medications carvediloL [...] Encounters Date Type Department Care Team Description 11/29/2024 Orders Only [facility] Radiation Oncology [address] [place] [address] Oralia Mancilla PA 11/05/2024 Orders Only [facility] Radiation Oncology [address] [place] [address] Oralia Mancilla PA Malignant neoplasm of thyroid gland (HCC) (Primary Dx) 11/05/2024 Telephone [facility] Radiation Oncology [address] [place] [address] YunierAmanda Bozena [place] Scheduling Appointments from Last 3 Months Social History Tobacco Use Types Packs/Day Years Used Date Smoking Tobacco: Never Tobacco Cessation:Counseling Given: Not Answered Personal Safety Answer Date Recorded Getting School Help Needed Not on file 11/09 Sex and Gender Information Value Date Recorded Sex Assigned at Not on file 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 Gender Identity Not on file Sexual Orientation [...] on patient's age to complete this topic Procedures Procedure Name Priority Date/Time Associated Diagnosis Comments TGAB+THYROGLOBULIN,AMY OR LCMS Routine 11/19/2024 8:09 AM CDT from Last 3 Months Results * TgAb+Thyroglobulin,AMY or LCMS (11/19/2024 8:09 AM CDT) Oralia REYNA LAB BLOOD ORDERABLES Fi nal Result from Last 3 Months Insurance [facility] Care Teams Occupational Psychologist Relationship Specialty Start Date End Date Alonso Rosenberg MD [address] [place] [address] PCP - General Pediatrics 11/10/23 Rhett Degn MD [address] [place] [address] Medical Oncologist/Hematologis t Hematology and Oncology 12/15/23 Douglas Beltran MD PhD [address] [place] [address] Radiation Oncologist Radiation Oncology 12/15/23 Mateus Rocha MD [address] [place] [address] Surgeon Otolaryngology 12/15/23 Virgilio Reddy MD [address] [place] [address] Consulting Physician Endocrinology Diabetes & Metabolism 12/15/23
--- OUTSIDE RECORDS SUMMARY | 2024-12-02 07:13 | XMS_ITS | Encounter Summary ---
Author Organization [facility] Healthcare Address [address] [place] [address] Care Team Providers Care Construction Representative Name Role Phone Alonso Rosenberg MD Primary Care Provider [phone] Rhett Deng MD Unavailable [phone] Douglas Beltran MD PhD Unavailable [phone] Mateus Rocha MD Unavailable [phone] Virgilio Reddy MD Unavailable [phone] Encounter Details Date Type Department Care Team (Late st Contact Info) Description 11/29/2024 Orders Only [facility] Advanced Medicine Radiation Oncology [address] [facility] Advanced Medicine [facility] [place], [place] [id number] Oralia Mancilla PA [address] [facility] [address] [place] [address] Social History Tobacco Use Types Packs/Day Years Used Date Smoking Tobacco: Never Personal Safety Answer Date Recorded Getting School Help Needed Not on file 11/09 Sex and Gender Information Value Date Recorded Sex Assigned at Not on file 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 Gender Identity Not on file Sexual Orientation Not on file documented as of this encounter Plan of Treatment Not on file documented as of this encounter Procedures Procedure Name Priority Date/Time Associated Diagnosis Comments TGAB+THYROGLOBULIN,AMY OR LCMS Routine 11/19/2024 8:09 AM CDT documented in this encounter Results * TgAb+Thyroglobulin,AMY or LCMS (11/19/2024 8:09 AM CDT) Oralia REYNA LAB BLOOD ORDERABLES Fi nal Result documented in this encounter Visit Diagnoses Not on filedocumented in this encounter Care Teams Construction Representative Relationship Specialty Start Date End Date Alonso Rosenberg MD [address] [place] [address] PCP - General Pediatrics 11/10/23 Rhett Deng MD [address] [place] [address] Medical Oncologist/Hematologis t Hematology and Oncology 12/15/23 Douglas Beltran MD PhD [address] [place] [address] Radiation Oncologist Radiation Oncology 12/15/23 Mateus Rocha MD [address] [facility] 2L [place] [address] Surgeon Otolaryngology 12/15/23 Virgilio Reddy MD [address] [facility] [address] [place] [address] Consulting Physician Endocrinology Diabetes & Metabolism 12/15/23 documented as of this encounter
--- OUTSIDE RECORDS SUMMARY | 2024-12-02 07:13 | XMS_ITS | Referral Summary ---
Author Organization [place] [address] [facility] [place] [facility] Address [address] [place] [address] Care Team Providers Care Managed Care Liaison Name Role Phone Alonso Rosenberg MD Primary Care Provider Rhett Deng MD Unavailable [phone] Douglas Beltran MD PhD Unavailable [phone] Mateus Rocha MD Unavailable [phone] Virgilio Reddy MD Unavailable [phone] Encounters Date Type Department Care Team Description 11/29/2024 Orders Only [facility] Radiation Oncology [address] [place] [address] Oralia Mancilla PA 11/05/2024 Orders Only [facility] Radiation Oncology [address] [place] [address] Oralia Mancilla PA Malignant neoplasm of thyroid gland (HCC) (Primary Dx) 11/05/2024 Telephone [facility] Radiation Oncology [address] [place] [address] Bozena Pike MA Scheduling Appointments from Last [...] on file 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 Gender Identity Not on file Sexual Orientation [...] - Plan of Treatment Not on file Procedures Procedure Name Priority Date/Time Associated Diagnosis Comments TGAB+THYROGLOBULIN,AMY OR LCMS Routine 11/19/2024 8:09 AM CDT from Last 3 Months Results * TgAb+Thyroglobulin,AMY or LCMS (11/19/2024 8:09 AM CDT) Oralia [facility] LAB BLOOD ORDERABLES Fi nal Result from Last 3 Months Insurance [facility] Care Teams Managed Care Liaison Relationship Specialty Start Date End Date Alonso Rosenberg MD [address] [place] [address] PCP - General Pediatrics 11/10/23 Rhett Deng MD [address] [place] [address] Medical Oncologist/Hematologis t Hematology and Oncology 12/15/23 Douglas Beltran MD PhD [address] [place] [address] Radiation Oncologist Radiation Oncology 12/15/23 Mateus Rocha MD [address] [facility] 2L [place] [address] Surgeon Otolaryngology 12/15/23 Virgilio Reddy MD [address] [facility] 2L [place] [address] Consulting Physician Endocrinology Diabetes & Metabolism 12/15/23
--- OUTSIDE RECORDS SUMMARY | 2024-12-02 07:13 | XMS_ITS | Clinical Summary ---
Author Organization [facility] Address [address] [facility] [place] [address] Care Team Providers Care Seed Corn Production Manager Name Role Phone Denitachrystal Inru Primary Care Provider [phone] Source Comments [facility],non-owned Affiliates and Associated Physician Practices is amultiple site organization consisting of ambulatory clinics and hospital sitesin [place], [place], [place] and [place]. This disclosure is being madepursuant to the Care Everywhere program and may not contain all information available regarding this patient. 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
--- OUTSIDE RECORDS SUMMARY | 2024-12-02 07:13 | XMS_ITS | Clinical Summary ---
Author Organization [facility] Address [address] [place] [address] Phone Care Team Providers Care Fall Internship Name Role Phone Niru Hines APRN, CLAIMS COLLECTOR Primary Care Provi clemencia Rhett Deng MD Unavailable [phone] Allergies No known active allergies Medications hydrALAZINE [...] Comments Blood Pressure 168/97 06/07/2023 11:00 AM TRACER POWDER BLENDER Pulse 85 06/07/2023 11:00 AM TRACER POWDER BLENDER Temperature 36.3 C (97.3 F) 06/07/2023 11:00 AM TRACER POWDER BLENDER Respiratory Rate 16 06/07/2023 11:0 0 AM TRACER POWDER BLENDER Oxygen Saturation 96% 06/07/2023 11: 00 AM TRACER POWDER BLENDER Inhaled Oxygen Concentration - - Weight 165.1 kg (363 lb 14.4 oz) 04/26/2023 9:58 AM CDT Height 190.5 cm (6' 3) 04/26/2023 9:58 AM CDT Body Mass Index 45.48 04/26/2023 9:58 AM CDT Plan of Treatment Health Maintenance Due Date Last Done Comments Hepatitis C Virus (HCV) Screening 1990 TdaP Immunization 1990 Hepatitis B Immunization (1 of 3 - 19+ 3-dose series) 2009 SARS-COV-2 Immunization (3 - season) 2024 12/12/2020, 11/21/2020 Influenza Immunization (Seas on Ended) 2025 Respiratory Syncytial Virus (RSV) Immunization (Adult) (1 - 1-dose 75+ series) 2065 DTaP/Tdap/Td Immunization Discontinued 1991, 08/30/1991, 01/25/1991 Human Papillomavirus (HPV) Immunization Aged Out No longer eligible based on patient's age to complete this topic Meningococcal Immunization (ACWY) Aged Out No longer eligible based on patient's age to complete this topic Pneumococcal Immunization Combined Aged Out No longer eligible based on patient's age to complete this topic Rotavirus Immunization Aged Out No lo nger eligible based on patient's age to complete this topic Insurance MEDICAID [facility] Care Teams Fall Internship Relationship Specialty Start Date End Date Niru Hines APRN, CLAIMS COLLECTOR [address] [address] PCP - General Advanced Practice Nurse 04/26/23 Rhett Deng MD [address] [place] [address] Consulting Physician Medical Oncology 04/26/23
--- OUTSIDE RECORDS SUMMARY | 2024-12-02 07:13 | XMS_ITS ---
Author Organization [place] [id number] [facility] Address [address] [place] [address] Care Team Providers Care Beauty Culturist Apprentice Name Role Phone Alonso Rosenberg MD Primary Care Provider Rhett Deng MD Unavailable [phone] Douglas Beltran MD PhD Unavailable [phone] Mateus Rocha MD Unavailable [phone] Virgilio Reddy MD Unavailable [phone] Active Problems Problem Noted Date Diagnosed Date [...]
[2024-12-04 10:08] LABS: Thyroglobulin 0.4 ng/mL; Thyroglobulin Antibodies <1 IU/mL (< or = 1)
== END 2024-12-02 07:06 | disposition home or self-care (01) ==
LOC: CHSLAB 07:10
PROVIDERS: PCP Nurse Practitioner Family
DX: C73 Malignant neoplasm of thyroid gland (principal)
CPT/HCPCS: 36415; 84432; 84443; 86800

== ENCOUNTER 2024-12-09 07:03 | Outpatient (CLI) | payer OTHER, SELFPAY ==
--- OUTSIDE RECORDS SUMMARY | 2024-12-09 07:07 | XMS_ITS | Encounter Summary ---
Author Organization [facility] Healthcare Address [address] [place] [address] Care Team Providers Care Yard Driver Name Role Phone Alonso Rosenberg MD Primary Care Provider [phone] Rhett Deng MD Unavailable [phone] Douglas Beltran MD PhD Unavailable [phone] Mateus Rocha MD Unavailable [phone] Virgilio Reddy MD Unavailable [phone] Encounter Details Date Type Department Care Team (Late st Contact Info) Description 12/05/2024 Orders Only [facility] Advanced Medicine Radiation Oncology [address] [facility] Advanced Medicine [facility] [place] [address] Oralia Mancilla PA [address] [facility] [address] [place] [address] Social History Tobacco Use Types Packs/Day Years Used Date Smoking Tobacco: Never Personal Safety Answer Date Recorded Getting School Help Needed Not on file 11/09 Sex and Gender Information Value Date Recorded Sex Assigned at Not on file 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 Gender Identity Not on file Sexual Orientation Not on file documented as of this encounter Plan of Treatment Not on file documented as of this encounter Procedures Procedure Name Priority Date/Time Associated Diagnosis Comments TGAB+THYROGLOBULIN,AMY OR LCMS Routine 12/05/2024 4:39 PM CDT documented in this encounter Results * TgAb+Thyroglobulin,AMY or LCMS (12/05/2024 4:39 PM CDT) Oralia REYNA LAB BLOOD ORDERABLES Fi nal Result documented in this encounter Visit Diagnoses Not on filedocumented in this encounter Care Teams Yard Driver Relationship Specialty Start Date End Date Alonso Rosenberg MD [address] [place] [address] PCP - General Pediatrics 11/10/23 Rhett Deng MD [address] [place] [address] Medical Oncologist/Hematologis t Hematology and Oncology 12/15/23 Douglas Beltran MD PhD [address] [place] [address] Radiation Oncologist Radiation Oncology 12/15/23 Mateus Rocha MD [address] [facility] 2L [place] [address] Surgeon Otolaryngology 12/15/23 Virgilio Reddy MD [address] [facility] 2L [place] [address] Consulting Physician Endocrinology Diabetes & Metabolism 12/15/23 documented as of this encounter
--- OUTSIDE RECORDS SUMMARY | 2024-12-09 07:07 | XMS_ITS ---
Author Organization [place] [id number] [facility] Address [address] [place] [address] Care Team Providers Care Diesel Technician Mechanic Name Role Phone Alonso Rosenberg MD Primary Care Provider [phone] Rhett Deng MD Unavailable [phone] Douglas Beltran MD PhD Unavailable [phone] Mateus Rocha MD Unavailable Virgilio Reddy MD Unavailable [phone] Active Problems Problem Noted Date Diagnosed Date [...]
--- OUTSIDE RECORDS SUMMARY | 2024-12-09 07:07 | XMS_ITS | Clinical Summary ---
Author Organization [facility] Address [address] [facility] [place] [address] Care Team Providers Care Player Development Manager Name Role Phone Denitachrystal Niru Primary Care Provider [phone] Source Comments [facility],non-owned Affiliates and Associated Physician Practices is amultiple site organization consisting of ambulatory clinics and hospital sitesin [place], [place], [place] and [place]. This disclosure is being madepursuant to the Care Everywhere program and may not contain all information available regarding this patient. 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
--- OUTSIDE RECORDS SUMMARY | 2024-12-09 07:07 | XMS_ITS | Clinical Summary ---
Author Organization [place] [id number] [facility] Address [address] [place] [address] Care Team Providers Care Data Management Engineer Name Role Phone Alonso Rosenberg MD Primary Care Provider Rhett Deng MD Unavailable [phone] Douglas Beltran MD PhD Unavailable [phone] Mtaeus Rocha MD Unavailable [phone] Virgilio Reddy MD Unavailable [phone] Allergies No known active allergies Medications carvediloL [...] Encounters Date Type Department Care Team Description 12/05/2024 Orders Only [facility] Radiation Oncology [address] [facility] [place] [address] Oralia Mancilla PA 12/02/2024 Orders Only [facility] Radiation Oncology [address] [facility] [place] [address] rOalia Mancilla PA 11/29/2024 Orders Only [facility] Radiation Oncology [address] [facility] [place] [address] Oralia Mancilla PA 11/05/2024 Orders Only [facility] Radiation Oncology [address] [facility] [place] [address] Oralia Mancilla PA Malignant neoplasm of thyroid gland (HCC) (Primary Dx) 11/05/2024 Telephone [facility] Radiation Oncology [address] [facility] [place] [address] Bozena Pike MA Scheduling Appointments from Last 3 Months Social History Tobacco Use Types Packs/Day Years Used Date Smoking Tobacco: Never Tobacco Cessation:Counseling Given: Not Answered Personal Safety Answer Date Recorded Getting School Help Needed Not on file 11/09 Sex and Gender Information Value Date Recorded Sex Assigned at Not on file 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 Gender Identity Not on file Sexual Orientation [...] OR LCMS Routine 12/05/2024 4:39 PM CDT TSH Routine 12/02/2024 3:17 PM CDT TGAB+THYROGLOBULIN,AMY OR LCMS Routine 11/19/2024 8:09 AM CDT from Last 3 Months Results * TgAb+Thyroglobulin,AMY or LCMS (12/05/2024 4:39 PM CDT) Oralia REYNA LAB BLOOD ORDERABLES Fi nal Result * TSH (12/02/2024 3:17 PM CDT) Blood Oralia RE[facility] LAB BLOOD ORDERABLES Fi nal Result * TgAb+Thyroglobulin,AMY or LCMS (11/19/2024 8:09 AM CDT) Oralia RE[facility] LAB BLOOD ORDERABLES Fi nal Result from Last 3 Months Insurance [facility] Care Teams Data Management Engineer Relationship Specialty Start Date End Date Alonso Rosenberg MD [address] [place] [address] PCP - General Pediatrics 11/10/23 Rhett Deng MD [address] [place] [address] Medical Oncologist/Hematologis t Hematology and Oncology 12/15/23 Douglas Beltran MD PhD [address] [address] Radiation Oncologist Radiation Oncology 12/15/23 Mateus Rocha MD [address] DEPT [place] [address] Surgeon Otolaryngology 12/15/23 Vrigilio Reddy MD [address] [facility] 2L DEPT [place] [address] Consulting Physician Endocrinology Diabetes & Metabolism 12/15/23
--- OUTSIDE RECORDS SUMMARY | 2024-12-09 07:07 | XMS_ITS | Clinical Summary ---
Author Organization [facility] Address [address] [place] [address] Phone Care Team Providers Care Escalator Constructor Name Role Phone Niru Hines APRN, ADVERTISING ACCOUNT MANAGER Primary Care Provi clemencia Rhett Deng MD Unavailable [phone] Allergies No known active allergies Medications hydrALAZINE [...] Comments Blood Pressure 168/97 06/07/2023 11:00 AM DIRECTOR OPERATIONS Pulse 85 06/07/2023 11:00 AM DIRECTOR OPERATIONS Temperature 36.3 C (97.3 F) 06/07/2023 11:00 AM DIRECTOR OPERATIONS Respiratory Rate 16 06/07/2023 11:0 0 AM DIRECTOR OPERATIONS Oxygen Saturation 96% 06/07/2023 11: 00 AM DIRECTOR OPERATIONS Inhaled Oxygen Concentration - - Weight 165.1 [...] Insurance MEDICAID [facility] Care Teams Escalator Constructor Relationship Specialty Start Date End Date Niru Hines APRN, ADVERTISING ACCOUNT MANAGER [address] [address] PCP - General Advanced Practice Nurse 04/26/23 Rhett Deng MD [address] [place] [address] Consulting Physician Medical Oncology 04/26/23
--- OUTSIDE RECORDS SUMMARY | 2024-12-09 07:07 | XMS_ITS | Referral Summary ---
Author Organization [place] [address] [facility] Address [address] [place] [address] Care Team Providers Care Flume Worker Name Role Phone Alonso Rosenberg MD Primary Care Provider Rhett Deng MD Unavailable [phone] Douglas Beltran MD PhD Unavailable [phone] Mateus Rocha MD Unavailable [phone] Virgilio Reddy MD Unavailable [phone] Encounters Date Type Department Care Team Description 12/05/2024 Orders Only [facility] Radiation Oncology [address] [facility] [place] [address] Oralia Mancilla PA 12/02/2024 Orders Only [facility] Radiation Oncology [address] [facility] [place] [address] Oralia Mancilla PA 11/29/2024 Orders Only [facility] Radiation Oncology [address] [facility] [place] [address] Oralia Mancilla PA 11/05/2024 Orders Only [facility] Radiation Oncology [address] [facility] [place] [address] Oralia Mancilla PA Malignant neoplasm of thyroid gland (HCC) (Primary Dx) 11/05/2024 Telephone [facility] Advanced Medicine Radiation Oncology [address] [facility] [place] [address] Bozena Pike MA Scheduling Appointments from Last [...] on file 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 Gender Identity Not on file Sexual Orientation [...] or LCMS (11/19/2024 8:09 AM CDT) Oralia Mancilla [place] LAB BLOOD ORDERABLES Fi nal Result from Last 3 Months Insurance [facility] Care Teams Flume Worker Relationship Specialty Start Date End Date Alonso Rosenberg MD [address] [place] [address] PCP - General Pediatrics 11/10/23 Rhett Deng MD [address] [place] [address] Medical Oncologist/Hematologis t Hematology and Oncology 12/15/23 Douglas Beltran MD PhD [address] [place] [address] Radiation Oncologist Radiation Oncology 12/15/23 Mateus Rocha MD [address] [place] [address] Surgeon Otolaryngology 12/15/23 Virgilio Reddy MD [address] [place] [address] Consulting Physician Endocrinology Diabetes & Metabolism 12/15/23
[2024-12-09 09:46] LABS: Albumin Level 4.1 g/dL (3.5-5.1); Anion Gap 7 mmol/L (4-12); Blood Urea Nitrogen 24 mg/dL (9-20); Calcium 8.7 mg/dL (8.4-10.2); Carbon Dioxide 24 mmol/L (22-30); Chloride 105 mmol/L (98-107); Estimated Glomerular Filt Rate 54; Glucose 91 mg/dL (65-110); Osmolality Calculated 286 mOsm/kg (285-295); Phosphorus 3.8 mg/dL (2.5-4.5); Potassium 4.2 mmol/L (3.4-5.0); Sodium 136 mmol/L (137-145)
[2024-12-09 09:59] LABS: Creatinine Urine 281.1 mg/dL; Total Protein Urine Random < 7 mg/dL; Ur Ttl Prot Creatinine Ratio 0.02 mg/mg (0-0.20)
[2024-12-09 10:20] LABS: Free T4 Free Thyroxine 0.21 ng/dL (0.78-2.19)
[2024-12-11 08:59] LABS: Thyroglobulin 0.8 ng/mL; Thyroglobulin Antibodies <1 IU/mL (< or = 1)
[2024-12-11 11:29] LABS: Cortisol Random 18.5 mcg/dL
== END 2024-12-09 07:04 | disposition home or self-care (01) ==
LOC: CHSLAB 07:05
PROVIDERS: Internal Medicine Nephrology; PCP Nurse Practitioner Family; Visit Provider Internal Medicine
DX: N18.2 Chronic kidney disease, stage 2 (mild) (principal); I42.9 Cardiomyopathy, unspecified; R60.0 Localized edema; C73 Malignant neoplasm of thyroid gland; E66.01 Morbid (severe) obesity due to excess calories; E89.0 Postprocedural hypothyroidism; I10 Essential (primary) hypertension; E04.2 Nontoxic multinodular goiter; Z68.41 Body mass index [BMI] 40.0-44.9, adult; R89.9 Unspecified abnormal finding in specimens from other organs, systems and tissues; E04.9 Nontoxic goiter, unspecified; E83.51 Hypocalcemia
CPT/HCPCS: 36415; 80069; 82533; 82570; 84156; 84432; 84439; 84443; 86800

== ENCOUNTER 2025-04-16 08:08 | Outpatient (CLI) | payer OTHER, SELFPAY ==
[2025-04-16 09:11] LABS: Free T4 Free Thyroxine 1.47 ng/dL (0.78-2.19)
[2025-04-16 09:25] LABS: Thyroid Stimulating Hormone 0.129 uIU/mL (0.465-4.680)
== END 2025-04-16 08:09 | disposition home or self-care (01) ==
LOC: CHSLAB 08:10
PROVIDERS: PCP Physician Assistant; Visit Provider Internal Medicine
DX: E04.2 Nontoxic multinodular goiter (principal); I10 Essential (primary) hypertension; E66.01 Morbid (severe) obesity due to excess calories; Z68.41 Body mass index [BMI] 40.0-44.9, adult; R89.9 Unspecified abnormal finding in specimens from other organs, systems and tissues; E04.9 Nontoxic goiter, unspecified
CPT/HCPCS: 36415; 84439; 84443